=== PATIENT | male | born 1980 | race Caucasian/White ===

== ENCOUNTER 2020-05-28 16:51 | Emergency (ER) | payer BC ==
[2020-05-28] MEDS ORDERED: MEDROL DOSEPAK 24 MG PO (19:10)
[2020-05-28] MEDS ORDERED: DOXYCYCLINE HY100 M2 PO (19:10)
[2020-05-28] MEDS ORDERED: ATROVENT-HFA12.9 GM INH (19:10)
[2020-05-28] MEDS ORDERED: FLONASE 0.05% N16 GM (19:10)
== END 2020-05-28 19:22 | disposition home or self-care (01) ==
LOC: ER1 16:51
DX: U07.1 COVID-19 (principal); Z88.8 Allergy status to other drugs, medicaments and biological substances
CPT/HCPCS: 0240U; 71045; 99283